=== PATIENT | female | born 1980 | race Caucasian/White ===

== ENCOUNTER 2017-02-19 08:19 | Day surgery (SDC) | payer MEDICAID, OTHER ==
[2017-02-19] MEDS ORDERED: Lactated Ringers 1,000 ML IV SCH (08:45)
[2017-02-19] MEDS ORDERED: Glycopyrrolate 0.2 MG/ML 5 ML MDV IV ONE (10:45)
[2017-02-19] MEDS ORDERED: ePHEDrine 50 MG/ML SDV IV ONE (10:45)
[2017-02-19] MEDS ORDERED: Midazolam 1 MG/ML 2 ML SDV IV ONE (10:45)
[2017-02-19] MEDS ORDERED: Ondansetron 4 MG/2 ML SDV IVPUSH ONE (10:45)
[2017-02-19] MEDS ORDERED: Propofol 200 MG/20 ML SDV IV ONE (10:45)
[2017-02-19] MEDS ORDERED: Dexamethasone 4 MG/ML 5 ML MDV IVPUSH ONE (10:45)
[2017-02-19] MEDS ORDERED: fentaNYL 100 MCG/2 ML SDV IV ONE (10:45)
[2017-02-19] MEDS ORDERED: Ketorolac 30 MG/ML SDV IVPUSH ONE (10:45)
[2017-02-19] MEDS ORDERED: Succinylcholine 200 MG/10 ML MDV IV ONE (10:45)
[2017-02-19] MEDS ORDERED: Neostigmine Methylsulfate 10 MG/10 ML MDV IVPUSH ONE (10:45)
[2017-02-19] MEDS ORDERED: diphenhydrAMINE 50 MG/ML SDV IV ONE (10:45)
[2017-02-19] MEDS ORDERED: Lactated Ringers 1,000 ML IV ONE (10:45)
--- NOTE | 2017-02-19 10:59 | PCM.HPR ---
H & P Addendum review - H & P Addendum Review Date of Original H & P: 02/18/17 Date Reviewed: 02/19/17 Time Reviewed: 10:45 Patient was Examined: No Changes
--- NOTE | 2017-02-19 11:52 | PCM.OPNOTE ---
- General Post-Op/Procedure Note Date of Surgery/Procedure: 02/19/17 Operative Procedure(s): Lap Nava Findings: Cholecystitis and Cholelithiasis Pre Op Diagnosis: Above Post-Op Diagnosis: Same Anesthesia Technique: General ET Tube Primary Surgeon: Kendall Cisneros Anesthesia Provider: Slime Hernandez Pathology: Gallbladder EBL in mLs: 5 Complications: None Condition: Good
[2017-02-19] MEDS ORDERED: Acetaminophen/HYDROcodone 325-5 MG Tab PO PRN (11:53)
[2017-02-19] MEDS ORDERED: Morphine 2 MG/ML Syringe IVPUSH PRN (11:53)
--- NOTE | 2017-02-19 12:38 | PCM.OPNOTE ---
- General Post-Op/Procedure Note Date of Surgery/Procedure: 02/19/17 Operative Procedure(s): EGD with Bx Findings: Pyloric Channel Unlcer X 2 Pre Op Diagnosis: Hematemesis and Melena Post-Op Diagnosis: Same Anesthesia Technique: MAC Primary Surgeon: Kendall Cisneros Anesthesia Provider: Slime Hernandez Pathology: Antral Bx EBL in mLs: 0 Complications: None Condition: Good
--- NOTE | 2017-02-19 15:16 | OR ---
DATE OF OPERATION: 02/19/2017 SURGEON: Kendall Cisneros MD PREOPERATIVE DIAGNOSES: Cholecystitis and cholelithiasis. POSTOPERATIVE DIAGNOSES: Cholecystitis and cholelithiasis. PROCEDURE: Laparoscopic cholecystectomy. ANESTHESIA: General. PROCEDURE IN DETAIL: The patient was brought to the operating room, where general endotracheal anesthesia was administered. The abdomen was prepped with ChloraPrep and draped sterilely. An infraumbilical incision was made and extended into the peritoneal cavity without difficulty. The Nella cannulator was introduced and pneumoperitoneum obtained. The remaining three 5-mm ports were placed in the usual positions. The patient was placed in reverse Trendelenburg position and rotated to the left. General exploration revealed the surface of the liver, stomach, omentum, visible bowel, and peritoneal surfaces to be normal. There were some omental adhesions in the lower abdomen from her previous . The gallbladder was grasped and retracted cephalad. There was no thickening of the wall, but an enlarged cystic duct node was present. Cystic artery and cystic duct were clearly dissected free. Cystic artery was doubly clipped proximally and once distally and then transected. A posterior branch of the cystic artery was also doubly clipped proximally and cauterized distally. The cystic duct was milked back into the gallbladder and doubly clipped proximally and once distally and then transected. The gallbladder was removed from the bed of the liver. A small hole was made in the gallbladder with some bile leakage that was suctioned and irrigated. Once the gallbladder was freed up, it was brought out through the umbilical incision and sent for pathology. The right upper quadrant was inspected and hemostasis assured. All clips were in place. Ports were removed under direct vision and remained hemostatic. Umbilical fascia was closed with [id number] 0 Vicryl. The skin was closed with 4-0 Vicryl subcuticular sutures. Benzoin and Steri- Strips were placed and Band-Aids applied. The patient tolerated the procedure well. ESTIMATED BLOOD LOSS: 5 mL. She returned to postanesthesia in stable condition. /[id number] TJM/DESIREEL CC: PETER KELLER, [place], [place]
== END 2017-02-19 14:00 | disposition home or self-care (01) ==
LOC: FB.SDS 08:19
PROVIDERS: ATTEND Surgery
DX: K80.10 Calculus of gallbladder with chronic cholecystitis without obstruction (principal); Z88.8 Allergy status to other drugs, medicaments and biological substances; Z98.890 Other specified postprocedural states; Z79.899 Other long term (current) drug therapy
CPT/HCPCS: 47562; 88304; A9270; J0330; J1100; J1200; J1885; J2250; J2405; J2704; J2710; J3010; J7120

== ENCOUNTER 2018-08-02 15:09 | Emergency (ER) | payer MEDICAID, OTHER ==
--- NOTE | 2018-08-02 16:42 | EDM.PDOC ---
ED HPI GENERAL MEDICAL PROBLEM - General Chief Complaint: Fever Stated Complaint: HEADACHE FEVER Time Seen by Provider: 08/02/18 16:15 Source of Information: Reports: Patient, Family History Limitations: Reports: No Limitations - History of Present Illness INITIAL COMMENTS - FREE TEXT/NARRATIVE: c/o ST, CLEMENT and cough pt with bifrontal CLEMENT, ST and cough x 2d went to [facility] yesterday and saw Adam, strep test was neg took ibuprofen 200 mg 4 tabs and APAP 500 mg 2 tabs, still without CLEMENT and cough no flu vax not work outside house 2 children, one dx with strep here with her mother who has had a slight cough and ST and unremarkable exam smokes 1/2 ppd frontal headache Pain Score (Numeric/FACES): 8 - Related Data Allergies Allergy/AdvReac Type Severity Reaction Status Date / Time meperidine Allergy Nausea Verified 08/02/18 15:18 Home Meds: Home Meds Omeprazole Magnesium [Prilosec Otc] 20 mg PO DAILY 02/18/17 [History] Benzonatate 100 mg PO TID PRN #21 capsule 08/02/18 [Rx] amLODIPine Besylate [Amlodipine Besylate] 10 mg PO DAILY 08/02/18 [History] traMADol HCl [Tramadol HCl] 50 mg PO Q8H PRN #8 tablet 08/02/18 [Rx] Past Medical History HEENT History: Reports: Impaired Vision, Otitis Media, Other (See Below) Other HEENT History: PE TUBE PLACEMENT CHILD, EAR SURGERY IN LEFT IN 20'S, WISDOM TEETH EXTRACTION TEEN. 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 NON MALIGNANT. Neurological History: Reports: None Psychiatric History: Reports: None Endocrine/Metabolic History: Reports: None, Other (See Below) Other Endocrine/Metabolic History: PATATHYROIDISM, HASSIMOTO Hematologic History: Reports: None Immunologic History: Reports: None Oncologic (Cancer) History: Reports: None Dermatologic History: Reports: None - Infectious Disease History Infectious Disease History: Reports: Chicken Pox - Past Surgical History Head Surgeries/Procedures: Reports: None HEENT Surgical History: Reports: Myringotomy w Tube(s), Oral Surgery GI Surgical History: Reports: Cholecystectomy Female Surgical History: Reports: Section, D&C, Other (See Below) Other Female Surgeries/Procedures: LEFT ECTOPIC 2016 WITH LAPAROSCOPIC SALPINGECTOMY Musculoskeletal Surgical History: Reports: Other (See Below) Other Musculoskeletal Surgeries/Procedures:: LEFT KNEE SURGERY AT AGE 11. Social & Family History - Family History Family Medical History: Noncontributory - Tobacco Use Smoking Status *Q: Current Every Day Smoker Years of Tobacco use: 10 Packs/Tins Daily: 0.5 - Caffeine Use Caffeine Use: Reports: None - Recreational Drug Use Recreational Drug Use: No ED ROS ENT - Review of Systems Review Of Systems: See Below Constitutional: Reports: Fever HEENT: Reports: Rhinitis Respiratory: Reports: Cough. Denies: Shortness of Breath, Wheezing, Sputum Cardiovascular: Reports: No Symptoms Endocrine: Reports: No Symptoms GI/Abdominal: Reports: No Symptoms : Reports: No Symptoms Musculoskeletal: Reports: No Symptoms Skin: Reports: No Symptoms Neurological: Reports: No Symptoms Psychiatric: Reports: No Symptoms Hematologic/Lymphatic: Reports: No Symptoms Immunologic: Reports: No Symptoms ED EXAM, ENT - Physical Exam Exam: See Below Exam Limited By: No Limitations General Appearance: Alert, WD/WN, Other (mildly tired, frequent cough, moves easily, nontoxic) Ears: Other (chronic TM perf on L with retracted TM, h/o tubes, retracted TM on R) Nose: Normal Inspection, Normal Mucousa, No Blood, Clear Rhinorrhea, Other ( really no swell) Mouth/Throat: Normal Inspection, Normal Gums, Normal Lips, Normal Oropharynx, Normal Teeth, Other (o-p is neg) Head: Atraumatic, Normocephalic Neck: Normal Inspection, Supple, Non-Tender, Full Range of Motion. No: Lymphadenopathy (R), Lymphadenopathy (L) Respiratory/Chest: No Respiratory Distress, Lungs Clear, Normal Breath Sounds, No Accessory Muscle Use, Chest Non-Tender, Other (no wheeze with cough, good AE) GI/Abdominal: Soft, Non-Tender, No Distention Back: Normal Inspection, Full Range of Motion Extremities: Normal Inspection, Normal Range of Motion, Non-Tender, No Pedal Edema Neurological: Alert, Oriented, CN II-XII Intact, Normal Cognition, Normal Gait, No Motor/Sensory Deficits Psychiatric: Normal Affect, Normal Mood Skin: Warm, Dry, Intact, Normal Color, No Rash Lymphatic: No Adenopathy Course - Vital Signs Last Recorded V/S: Last Vital Signs Temp 36.7 C 08/02/18 15:21 Pulse 95 08/02/18 15:21 Resp 18 08/02/18 15:21 BP 146/76 H 08/02/18 15:21 Pulse Ox 99 08/02/18 15:21 Departure - Departure Time of Disposition: 16:54 Disposition: Home, Self-Care 01 Condition: Good Clinical Impression: Influenza A - Discharge Information *PRESCRIPTION DRUG MONITORING PROGRAM REVIEWED*: Not Applicable *COPY OF PRESCRIPTION DRUG MONITORING REPORT IN PATIENT ASHLEY: Not Applicable Prescriptions: Benzonatate 100 mg PO TID PRN #21 capsule PRN Reason: Cough traMADol HCl [Tramadol HCl] 50 mg PO Q8H PRN #8 tablet PRN Reason: Pain Instructions: Influenza, Adult Referrals: Adam Holland PA [Primary Care Provider] - Forms: ED Department Discharge Additional Instructions: For pain and inflammation and fever, take ibuprofen 200 mg 4 tabs and acetaminophen 500 mg 2 tabs 3 times a day for 5 days, longer if needed. May take an additional dose of acetaminophen 500 mg 2 tabs during the middle of the night if desired (for a max of 8 tabs in 24 hours). For pain, may also take tramadol 50 mg 1 tab 3 times a day. For cough, take benzonatate 100 mg 1 capsule 3 times a day. Use good handwashing. Get adequate rest. See your doctor if you feel worse or are not getting better in one week.
== END 2018-08-02 17:10 | disposition home or self-care (01) ==
LOC: FB.ED 15:09
DX: J10.1 Influenza due to other identified influenza virus with other respiratory manifestations (principal); F17.210 Nicotine dependence, cigarettes, uncomplicated; Z88.8 Allergy status to other drugs, medicaments and biological substances; Z79.899 Other long term (current) drug therapy
CPT/HCPCS: 87804; 87804-59; 99284

== ENCOUNTER 2023-10-23 10:23 | Emergency (ER) | payer BC, OTHER ==
[2023-10-23 10:44] LABS: BILIRUBIN,URINE NEGATIVE (NEGATIVE); GLUCOSE,URINE NORMAL (NORMAL); KETONES,URINE 15 mg/dL (NEGATIVE); LEUKOCYTE ESTERASE,URINE LARGE (NEGATIVE); NITRITE,URINE NEGATIVE (NEGATIVE); OCCULT BLOOD,URINE MODERATE (NEGATIVE); PROTEIN,URINE NEGATIVE (NEGATIVE); UROBILINOGEN,URINE NORMAL (NEGATIVE)
[2023-10-23 10:48] LABS: APPEARANCE,URINE CLOUDY (CLEAR); COLOR,URINE YELLOW (YELLOW)
[2023-10-23 10:49] LABS: WBC,URINE PACKED (0-5)
[2023-10-23] MEDS: Ketorolac 30 MG/ML SDV IM STA (11:05)
[2023-10-23] MEDS: Ondansetron 4 MG Tab.DIS PO ONE (11:05)
== END 2023-10-23 13:13 | disposition home or self-care (01) ==
LOC: FB.ED 10:23
DX: N39.0 Urinary tract infection, site not specified (principal); Z90.49 Acquired absence of other specified parts of digestive tract; Z79.899 Other long term (current) drug therapy; Z88.5 Allergy status to narcotic agent
CPT/HCPCS: 74176; 81001; 87086; 87088; 87186; 96372; 99284; J1885; Q0162